=== PATIENT | male | born 2000 | race Caucasian/White ===

== ENCOUNTER 2024-10-04 17:52 | Emergency (ER) | payer BC ==
[2024-10-04] MEDS ORDERED: Sodium Chloride 0.9% 2.5 ML Syringe FLUSH PRN (19:57)
[2024-10-04 20:45] LABS: BASOPHILS ABSOLUTE AUTO 0.03 K/uL (0.00-0.20); BASOPHILS PERCENT AUTO 0.3 % (0.0-1.0); EOSINOPHILS ABSOLUTE AUTO 0.08 K/uL (0.00-0.45); EOSINOPHILS PERCENT AUTO 0.7 % (0.0-6.0); HEMATOCRIT 47.3 % (42.0-52.0); HEMOGLOBIN 17.6 g/dL (14.0-18.0); IMMATURE GRAN ABSOLUTE AUTO 0.07 K/uL (0.00-0.05); IMMATURE GRAN PERCENT AUTO 0.6 % (0.0-0.4); LYMPHOCYTES ABSOLUTE AUTO 2.44 K/uL (1.00-4.80); LYMPHOCYTES PERCENT AUTO 22.3 % (24.0-44.0); MEAN CORPUSCULAR HEMOGLOBIN 30.3 pg (28.0-32.0); MEAN CORPUSCULAR HGB CONC 37.2 g/dL (32.0-36.0); MEAN CORPUSCULAR VOLUME 81.6 fL (83.0-99.0); MEAN PLATELET VOLUME 9.9 fL (9.4-12.4); MONOCYTES PERCENT AUTO 8.2 % (0.0-8.0); NEUTROPHILS ABSOLUTE AUTO 7.42 K/uL (1.80-7.70); NEUTROPHILS PERCENT AUTO 67.9 % (41.0-71.0); PLATELET COUNT,PLT 238 K/uL (150-400); WHITE BLOOD CELL COUNT,WBC 10.94 K/uL (3.9-11.3)
[2024-10-04] MEDS: Lactated Ringers 1,000 ML IV STA (20:56)
[2024-10-04] MEDS: Sodium Chloride 0.9% 10 ML Syringe FLUSH PRN (20:57)
[2024-10-04 21:07] LABS: A/G RATIO 1.4 (0.9-1.6); ALBUMIN 4.6 g/dL (3.4-5.0); BILIRUBIN TOTAL 0.9 mg/dL (0.2-1.0); CALCIUM 9.5 mg/dL (8.5-10.1); CARBON DIOXIDE,CO2 25.6 mmol/L (21.0-32.0); CREATININE 1.1 mg/dL (0.8-1.3); EST CRCL DRUG DOSING (CG) 114.64 mL/min; POTASSIUM,K 4.3 mmol/L (3.5-5.1)
[2024-10-04 21:12] LABS: MAGNESIUM 2.2 mg/dL (1.8-2.4)
== END 2024-10-04 21:46 | disposition home or self-care (01) ==
LOC: MW.ED 17:52
DX: R06.02 Shortness of breath (principal); R00.0 Tachycardia, unspecified; Z75.8 Other problems related to medical facilities and other health care
CPT/HCPCS: 36415; 71046; 80053; 83690; 83735; 84484; 85025; 85379; 87428; 87651; 96360; 99285; J7120; 99284